=== PATIENT | male | born 1980 | race African-American/Black ===

== ENCOUNTER 2021-02-24 18:00 | Emergency (ER) | payer OTHER ==
[~2021-02-24] VITALS: Ht 182.9 cm; Wt 90.0 kg
[2021-02-24] MEDS ORDERED: IBUPROFEN 800MG TABLET PO ONE (18:45)
[2021-02-24] MEDS ORDERED: ACETAMINOPHEN 325MG TABLET PO ONE (18:45)
[2021-02-24] MEDS ORDERED: METHOCARBAMOL 500MG TABLET PO ONE (18:45)
[2021-02-24] MEDS ORDERED: METH-653 MT (20:22)
[2021-02-24 20:37] VITALS: BP 107/69
== END 2021-02-24 20:42 | disposition home or self-care (01) ==
LOC: ER 20:07
DX: S20.212A Contusion of left front wall of thorax, initial encounter (principal); S90.512A Abrasion, left ankle, initial encounter; R07.89 Other chest pain; V00.148A Other scooter (nonmotorized) accident, initial encounter; Y93.89 Activity, other specified; Y92.89 Other specified places as the place of occurrence of the external cause; Y99.8 Other external cause status
CPT/HCPCS: 71101; 99284